=== PATIENT | male | born 1955 | race Caucasian/White ===

== ENCOUNTER 2018-06-10 07:58 | Inpatient (IN) ==
--- NOTE | 2018-06-05 18:48 | MH ---
cc: Edil Churchill MD, Anunporn MD DATE OF ADMISSION: 06/10/2018 He is scheduled to be admitted to the hospital on 06/10/2018. ADMITTING DIAGNOSIS: Osteoarthritis of the right knee. HISTORY OF PRESENT ILLNESS: The patient is a 63-year-old white male who has experienced approximately a 5-year history of pain involving his right knee. He had originally noted the gradual onset of soreness generalized about the knee, unrelated to injury or unusual activity. He had initially conformed to conservative management during which time there was a waxing and waning of soreness about the knee that had become somewhat more pronounced with the passage of time. He had been taking Motrin for pain relief, being unaware of any significant swelling. He was initially evaluated in the office in 03/2015 for his complaints involving right knee pain. At that time, he suggested that he might have undergone arthroscopic surgery of his right knee approximately 20 years previous, but was unable to be more specific in this regard. His current x-ray studies at that time did reveal intra-articular calcification more pronounced about the medial compartment with remaining bony alignment and configuration appearing within normal limits. The patient was diagnosed as having chondrocalcinosis of his right knee with possible internal derangement, at which time, he declined offer for prescribed medication or an intraarticular steroid injection, electing to continue with conservative management thereafter. He subsequently returned to the office in the more recent past, indicating ongoing pain about his right knee. He subsequently underwent an MRI scan and evaluation, the results of which identified moderate to severe medial compartment osteoarthritis with femoral condyle marrow edema and what appeared to be a recurrent oblique and horizontal tear of the posterior horn and body of the medial meniscus as well as a short segment oblique tear of the body of the lateral meniscus. There was moderate lateral and patellofemoral compartment chondromalacia associated with a large joint effusion and severe synovitis. The findings of the scan were reviewed and treatment options discussed. The patient had undergone recent aspiration of his right knee with an intraarticular steroid injection that unfortunately had not provided him with any significant relief of his pain. Based upon the findings of his scan, treatment options were reviewed with indication being noted that it was unlikely that the patient would be able to experience any long-term benefit from arthroscopic surgery, and that his more favorable long-term benefit would more likely be associated with total knee arthroplasty. It was emphasized that the decision to proceed with surgery would be left entirely to the patient's discretion. The patient readily admitted that his symptoms had progressed to a point in time where he was ready to proceed accordingly and in compliance with his wishes, he has currently been scheduled for admission in order that the above be accomplished. PAST MEDICAL HISTORY: In addition to the arthroscopic surgery of his right knee, includes excision of a benign cyst from his back area and colonoscopy. The patient denies active medical illnesses. He takes no prescribed medications. There are NO INDICATED DRUG ALLERGIES. REVIEW OF SYSTEMS: He does wear glasses. There is a history of headaches. No seizure or syncope. No sinus congestion or epistaxis. Auditory acuity intact. No tinnitus. No bleeding gums or dysphagia. Denies cough, shortness of breath, upper respiratory infection. There is a positive history of pneumonia. No angina or heart disease. His appetite is good. Bowel movements are regular. No hepatitis, gallbladder disease or hemorrhoids. There is a history of ulcers. No urinary tract infection, no kidney stones, history of inflamed prostate. No fractures. No psychiatric illness. His remaining review of systems is unremarkable and noncontributory. FAMILY HISTORY: The patient has been for 17 years. One daughter described as being in good health. FAMILY HISTORY: Positive for hypertension, diabetes and heart disease. 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 He completed a high school education. He denies active use of tobacco and ethanol. VITAL SIGNS: VITAL SIGNS: Height 6 feet 2 inches, weight 217 pounds. GENERAL: An alert, oriented, and responsive 63-year-old white male who sits quietly upon the examination table with no obvious distress. HEAD, EARS, EYES, NOSE, AND THROAT: Pupils are equally round and reactive to light. Extraocular movements full. Sclerae are clear. External nares clear. External auditory canals clear. Dental intact. Mucous membranes pink and moist. Pharynx clear. NECK: Supple. Active range of motion without appreciable pain. Carotid pulse is palpable bilaterally. Trachea midline. Thyroid without thyroid enlargement. LUNGS: Clear to auscultation and percussion. No CVA tenderness. No discomfort throughout the dorsolumbar spine. HEART: Regular rate and rhythm. No murmur or gallop. ABDOMEN: Soft, nontender, bowel sounds present. RECTAL: Per primary care physician. EXTREMITIES: Right knee, there is a generalized fullness about the knee consistent with thickened synovium and intraarticular effusion. Slight medial joint line tenderness. Apprehension and compression sign negative. Limited mobility in the 90-100 degree range of flexion with pain at the extreme of motion. No appreciable ligamentous instability. Sandy test and drawer sign negative. Pivot shift and Kervin sign positive for medial compartment pain. Straight leg raising unremarkable at 80 degrees. Antalgic gait. NEUROLOGIC: Cranial nerves 2-12 grossly intact. IMPRESSION: Osteoarthritis, right knee. PLAN: Right total knee arthroplasty. The nature of the planned surgical procedure, the potential complications and risks associated, the expectations of surgery and the consent form were thoroughly reviewed with the patient prior to his admission to the hospital. Jonathan has indicated his full understanding regarding all of the above and given consent to proceed with treatment as outlined. Evaluation and clearance for surgery completed by his primary care physician, Dr. Toyin Barksdale (Tui)azhelen. MD JOLYNN Fermin/tom/ward , 04:59 PM , 05:11 PM
[2018-06-10] MEDS ORDERED: Chlorhexidine Gluconate 2% 1 Pack (2 Cloths) TOPICAL ONE (08:34)
[2018-06-10] MEDS ORDERED: Metoprolol Tartrate 25 MG Tablet PO ONE (08:34)
[2018-06-10] MEDS ORDERED: Sodium Chlor 0.9% Inj 73.07 ML, Ropivacaine 0.5% PF Inj 24.63 ML, Ketorolac Inj 30 MG, ... P-ARTICULR SCH ×5 (08:45)
[2018-06-10] MEDS ORDERED: Tranexamic Acid Inj 1,000 MG in Sodium Chlor 0.9% Inj 100 ML IV.SIG SCH ×2 (09:00→11:41)
[2018-06-10] MEDS ORDERED: ROPIVACAINE 0.5% P-ARTICULR SCH ×5 (09:00)
[2018-06-10] MEDS ORDERED: KETOROLAC P-ARTICULR SCH ×5 (09:00)
[2018-06-10] MEDS ORDERED: Sodium Chlor 0.9% Inj 500 ML IV.SIG SCH (09:00)
[2018-06-10] MEDS ORDERED: SODIUM CHLOR 0.9% P-ARTICULR SCH ×5 (09:00)
[2018-06-10] MEDS ORDERED: ceFAZolin 2 GM Premix Inj 2 GM/50 ML PIGGYBACK IV.SIG SCH (09:00)
[2018-06-10] MEDS ORDERED: [UNRECOGNIZED DRUG - OTHER] P-ARTICULR SCH ×5 (09:00)
[2018-06-10] MEDS ORDERED: ceFAZolin Inj 2,000 MG in Sodium Chlor 0.9% Inj 100 ML IV.SIG SCH (09:00)
[2018-06-10] MEDS ORDERED: Bupivacaine/Dextrose 0.75% Inj 2 ML Ampul ONE (09:22)
[2018-06-10] MEDS ORDERED: Propofol Inj 500 MG/50 ML Vial ONE (09:29)
[2018-06-10] MEDS ORDERED: Lidocaine PF 1% Inj 5 ML Syringe OTHER ONE (11:15)
[2018-06-10] MEDS ORDERED: Neostigmine Inj 5 MG/5 ML Syringe IV.PUSH ONE (11:15)
[2018-06-10] MEDS ORDERED: Glycopyrrolate Inj 1 MG/5 ML Syringe IV.PUSH ONE (11:15)
[2018-06-10] MEDS ORDERED: *morphine SULFATE 4 MG/ML PERIprocedure ONLY ONE ×3 (14:01→14:20)
[2018-06-10] MEDS ORDERED: Naloxone Inj 0.4 MG/ML Vial IV.PUSH PRN (14:04)
[2018-06-10] MEDS ORDERED: Aluminum/Magnesium/Simethacone Susp 30 ML UDC PO PRN (14:04)
[2018-06-10] MEDS ORDERED: Morphine Inj 30 MG/30 ML PCA.VIAL PCA PRN (14:04)
[2018-06-10] MEDS ORDERED: Zolpidem Tartrate 5 MG Tablet PO PRN (14:04)
[2018-06-10] MEDS ORDERED: Acetaminophen 325 MG Tablet PO PRN (14:04)
[2018-06-10] MEDS ORDERED: Morphine Sulfate Inj 2 MG/ML Vial IV.PUSH PRN (14:04)
[2018-06-10] MEDS ORDERED: fentaNYL Citrate Inj 100 MCG/2 ML Ampul ONE (14:04)
[2018-06-10] MEDS ORDERED: Bisacodyl 10 MG Supp RECTAL PRN (14:04)
[2018-06-10] MEDS ORDERED: Post-op Orders (for Pharmacy) OTHER STA (14:04)
[2018-06-10] MEDS ORDERED: Tranexamic Acid Inj 1,000 MG in Sodium Chlor 0.9% Inj 100 ML IV.SIG ONE (14:20)
--- NOTE | 2018-06-10 14:56 | MP ---
cc: Edil Churchill MD DATE OF OPERATION: 06/10/2018 PREOPERATIVE DIAGNOSIS: Osteoarthritis of the right knee. POSTOPERATIVE DIAGNOSIS: Osteoarthritis of the right knee. PROCEDURE PERFORMED: Right total knee arthroplasty. SURGEON: Edil Churchill MD. ANESTHESIA: General endotracheal. INDICATIONS: This is a 63-year-old white male with a 5-year history of right knee pain of gradual onset, unrelated to injury or unusual activity. He had conformed to conservative management in the early phases of his treatment, during which time he described a waxing and waning of soreness about the knee that had become more pronounced with the passage of time. He had been taking Motrin for pain management, being unaware of any significant swelling about his knee. He had undergone office evaluation in 03/2015 and, at that time, he suggested that he might have undergone arthroscopic surgery of his right knee within the previous 20 years, but was unable to be more specific in this regard. His x-ray studies had revealed intra-articular calcification more pronounced about the medial compartment, with remaining bony alignment and configuration appearing within normal limits. The patient was diagnosed as having chondrocalcinosis, with possible internal derangement and, at that time, he declined offer for prescribed medication for an intraarticular steroid injection, continuing with conservative management. He will return to the office in the more recent past, describing ongoing pain about his right knee. He later underwent an MRI scan, the results of which identified moderate to severe medial compartment osteoarthritis with femoral condyle marrow edema, and what appeared to be a recurrent oblique and horizontal tear involving the posterior horn and body of the medial meniscus. A short segment oblique tear of the body of the lateral meniscus was also noted. There was moderate lateral and patellofemoral compartment chondromalacia associated with a large joint effusion and severe synovitis. These findings were reviewed with the patient and treatment options discussed. The patient later underwent an aspiration of his right knee with an intraarticular steroid injection that unfortunately did not prove to be of any long-term benefit. Based upon the findings of the scan and the treatment options being reviewed, it was suggested to the patient that it would be unlikely that long-term benefit would occur from arthroscopic surgery and this more favorable course of treatment would be associated with total knee arthroplasty. The patient considered his options in this regard and, thereafter, he expressed a desire to proceed with the arthroplasty as discussed, and in compliance with his wishes, he was scheduled for admission at this time in order that the above be accomplished. FORMAT: Following induction of satisfactory general anesthesia by endotracheal intubation as completed per the department of anesthesia, a tourniquet was established around the proximal portion of the right lower extremity. The extremity proper was isolated with a U-drape, thereafter being prepped with Betadine solution and draped into a sterile field in the routine manner. Prior to initiation of the actual procedure, the standard timeout protocol was completed. All parameters were appropriately addressed and confirmed by operating room personnel. The extremity was elevated for approximately 1 minute and the tourniquet thus inflated to 250 mmHg pressure. A sharp skin incision was initiated midline over the anterior aspect of the knee and developed through underlying subcutaneous tissue, with hemostasis maintained by electrocautery. By deepening dissection, the anterior capsule was exposed, the medial capsulotomy completed, and the patella subluxed in a lateral orientation. Examination of the joint space revealed severe degenerative changes throughout the medial compartment, extending into the lateral compartment, and lesser involvement about the patellofemoral articulation. The articular surface of the patella was resected with a power saw. The 3-holed guide was utilized for establishing post-holes. The anterior cruciate ligament as well as medial and lateral meniscus structures were sharply excised. A centering hole was placed in the distal aspect of the femur, allowing positioning of the intramedullary guide. The distal femoral cutting jig was attached and the distal femur resected. AP measurement noted 75 mm sizing to be appropriate. The matching cutting block was positioned. Anterior, posterior, and chamfer cuts were completed. The tibial plateau was subluxed in an anterior orientation, allowing positioning of the extramedullary guide. The tibial plateau was resected and measured with 83-mm sizing determined to be satisfactory. Trial reduction followed utilizing a 75-mm anatomic femoral component, an 83-mm tibial base with 10-mm bearing insert. The knee was readily reduced and was carried through a passive range of motion, and stability was noted at 0 and 90 degrees of flexion with no appreciable laxity to varus and valgus stress. Reduction, thereafter, completed with a 34-mm standard 3 post-patellar button. Once again good tracking was demonstrated with no tendency towards subluxation. All trial components being removed, the remaining portion of the proximal tibia was prepared for insertion of the permanent component. The joint space was thoroughly lavaged with pulsating antibiotic solution, hemostasis being maintained by electrocautery. An autogenous bone plug was inserted into the distal femoral guide hole and, thereafter, a preparation of Biomet bone cement was utilized in inserting knee components in a sequential fashion, which included an 83-mm fixed cruciate tibial plate, to which a 10-mm Vanguard tibial bearing insert was secured with locking napoles. The 75-mm Vanguard femoral component was firmly seated onto the distal femur, excess cement being removed. The knee was brought to full extension and, thereafter, the 34-mm standard 3 post-patellar button was attached and maintained in place with patellar clamp while cement hardening was completed. Final range of motion assessment noted good tracking and stability throughout the knee. Irrigation was repeated with hemostasis maintained. AutoVac drain tubes were inserted through superior stab wounds. The capsule was repaired with 0 Vicryl suture. The remaining portion of the wound was closed in layers in the routine manner, skin margins being reapproximated with a running subcuticular 3-0 Vicryl suture, over which Steri-Strips were applied. Xeroform gauze and a bulky dry sterile dressing were placed. Tourniquet deflated after 48 minutes of tourniquet time. Anesthesia discontinued. The patient was transferred to a hospital bed and returned to the recovery room in satisfactory condition, having tolerated his operative procedure well. Estimated blood loss was approximately 100 mL as determined per anesthesia. 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 MD JOLYNN Fermin/renetta , 01:56 PM , 02:11 PM
[2018-06-10] MEDS ORDERED: Famotidine PF Inj 20 MG/2 ML Vial ONE (14:58)
--- NOTE | 2018-06-10 15:50 | XR ---
EXAM DATE: 06/10/2018 3:28 PM EDT AGE/SEX: 63 years / Male INDICATIONS: Post op total knee replacement. CLINICAL DATA: This is the patient's initial encounter. Patient reports that signs and symptoms have been present for 1 day and indicates a pain score of 7/10. MEDICAL/SURGICAL HISTORY: None. None. COMPARISON: No prior exams available for comparison. FINDINGS: Two views of the knee reveal a total knee prosthesis in good position. No fracture or dislocation is observed. Soft tissues are unremarkable. No joint effusion is seen. Surgical drain noted. CONCLUSION: Total knee prosthesis in good position. Electronically signed by: Sam Prince MD 06/10/2018 3:48 PM EDT
[2018-06-10] MEDS ORDERED: Famotidine PF Inj 20 MG/2 ML Vial IV.PUSH ONE (16:00)
--- NOTE | 2018-06-10 16:10 | P.CONIM ---
History of Present Illness Service: [facility] Consult date: 06/10/18 Requesting Physician: Edil Churchill Reason for Consult: MEDICAL MANAGEMENT Primary Care Provider: Toyin Dominguez MD Family Provider: Toyin Dominguez MD Chief Complaint: Status post right knee total arthroplasty History of Present Illness: Patient is a 63-year-old male with history of arthroscopic surgery of his right knee and excision of a benign cyst from his back and a colonoscopy denies any other medical issues. Does not take any active medications. Was found to have right knee severe osteoarthritis underwent a right total knee arthroplasty today. We have been asked to help regarding medical management. Patient has history of GERD and enlarged prostate. Patient denies any real medical problems other than osteoarthritis. Past family history is significant for hypertension and diabetes and heart disease Review of Systems All other systems reviewed negative except as stated in HPI [facility] - History History Provided By: Patient - Medical History Medical History: Medical History (Last Reviewed 06/10/18 @ 11:04 by Huong Wilson PT) Acid reflux Arthritis Enlarged prostate History of anesthesia reaction Joint pain Wears glasses - Surgical History Surgical History: Surgical History (Last Reviewed 06/10/18 @ 11:04 by Huong Wilson PT) History of arthroscopy of right knee - Family History Family History: Family History (Last Updated 06/10/18 @ 16:03 by Zachary Ballesteros DO) Other Family history of diabetes mellitus Family history of hypertension - Social History I have reviewed the patient's Social History: Yes - Tobacco History Second Hand Smoke Exposure: No Smoking Status: Never smoker - Alcohol History How Often Do You Have a Drink Containing Alcohol: Never - Substance Use History Substance History: No History of Abuse - Travel History History of Recent Travel: No Recent Travel in the [place] Within the Last 8 Weeks: No Recent Travel Out of the Country Within the Last 8 Weeks: No Medications and Allergies Active Medications: Active Medications Acetaminophen (Tylenol) 650 mg PO Q6H PRN PRN Reason: FEVER > 102 F Hydrocodone Bitart/Acetaminophen ([place] 5/325) 1 tab PO Q4H PRN PRN Reason: PAIN LESS THAN 5 ON SCALE Hydrocodone Bitart/Acetaminophen ([place] 5/325) 2 tab PO Q6H PRN PRN Reason: PAIN SCALE 5 TO 10 Al Hydrox/Mg Hydrox/Simethicone (Mag-Al Plus Susp Liq) 30 ml PO Q6H PRN PRN Reason: INDIGESTION Al Hydroxide/Mg Hydroxide (Milk Of Magnesia Liq) 30 ml PO BID PRN PRN Reason: Mild Constipation Aspirin (Aspirin) 325 mg PO BID MARY LOU Bisacodyl (Dulcolax Supp) 10 mg RECTAL DAILY PRN PRN Reason: SEVERE CONSITIPATION Lactated Ringer's (Lr 1000 Ml Inj) 1,000 mls @ 30 mls/hr IV.SIG .Q24H [facility]ARY LOU Stop: 06/11/18 08:44 Last Infusion: 06/10/18 13:04 Dose: Infused Sodium Chloride (Ns Inj) 500 mls @ 30 mls/hr IV.SIG .Q10H MARY LOU Last Admin: 06/10/18 10:14 Dose: Not Given Tranexamic Acid 1,000 mg/ (Sodium Chloride) 110 mls @ 200 mls/hr IV.SIG ONCE MARY LOU Stop: 06/11/18 08:59 Last Infusion: 06/10/18 12:11 Dose: Infused Tranexamic Acid 1,000 mg/ (Sodium Chloride) 110 mls @ 200 mls/hr IV.SIG ONCE MARY LOU Stop: 06/11/18 11:40 Cefazolin Sodium 1,000 mg/ (Sodium Chloride) 100 mls @ 200 mls/hr IV.SIG Q6H [facility] Stop: 06/11/18 06:29 Lactated Ringer's (Lr 1000 Ml Inj) 1,000 mls @ 80 mls/hr IV.CONT .[id number] [facility] Morphine Sulfate (Morphine Inj) 30 mg in 30 mls @ 0 mls/hr EDUCATION LIAISON UNSCH PRN PRN Reason: per EDUCATION LIAISON parameters Lactulose (Lactulose Liq) 30 ml PO DAILY PRN PRN Reason: SEVERE CONSITIPATION Miscellaneous Information (Misc Nursing Information) 0 each OTHER UNSCH PRN PRN Reason: SEE DOSE INSTRUCTIONS Morphine Sulfate (Morphine Inj) 2 mg IV.PUSH Q3H PRN PRN Reason: BREAKTHROUGH PAIN Multivitamins (Theragran) 1 tab PO DAILY MARY LOU Naloxone HCl (Narcan Inj) 0.4 mg IV.PUSH PRN PRN PRN Reason: Resp rate < 10 Ondansetron HCl (Zofran Inj) 4 mg IV.PUSH Q6H PRN PRN Reason: NAUSEA OR VOMITING Povidone Iodine (Betadine 7.5% Scrub) 1 applicatio TOPICAL ONCE [facility] Stop: 06/14/18 08:59 Senna/Docusate Sodium (Nikki-Colace) 1 tab PO BID [facility] Sennosides (Senokot) 17.2 mg PO BID PRN PRN Reason: Moderate Constipation Sodium Chloride (Ns Flush) 2 ml IV.FLUSH PRN PRN PRN Reason: FLUSH AFTER USING IV ACCESS Sodium Chloride (Ns Flush) 2 ml IV.FLUSH BID [facility] Zolpidem Tartrate (Ambien) 5 mg PO HS PRN PRN Reason: INSOMNIA Allergies Allergy/AdvReac Type Severity Reaction Status Date / Time No Known Allergies Allergy Verified 06/10/18 08:49 Home Medications Medication Instructions Recorded Confirmed Type mv,Ca,Fe,[id number] [One 1 tab PO DAILY 05/29/18 06/10/18 History Daily] naproxen sodium [Aleve] 220 mg PO TID PRN 05/29/18 06/10/18 History omega 9-[id number]-fish oil [Fish Oil] 1 cap PO DAILY 05/29/18 06/10/18 History Exam Vital signs: Vital Signs 06/10/18 08:56 06/10/18 09:09 Temperature 97.9 F Pulse Rate 80 80 Respiratory Rate 18 Blood Pressure 150/87 H Pulse Oximetry 96 97 Intake & Output 06/09/18 06/10/18 06/10/18 18:59 06:59 18:59 Intake Total 1330 / 1330 Output Total 100 / 100 Balance 1230 / 1230 Weight 97.3 kg Intake: IV 1230 / 1230 LR 1000 mL Inj 1,000 ML @ 30 1000 / 1000 mls/hr IV.SIG .Q24H MARY LOU Rx#: [id number] Cyklokapron Inj 1,000 MG In NS 110 / 110 Inj 100 ML @ 200 mls/hr IV.SIG ONCE [facility]ARY LOU Rx#:[id number] Ancef Inj 2,000 MG In NS Inj 120 / 120 100 ML @ 200 mls/hr IV.SIG PERIANESTHESIA RN MARY LOU Rx#:[id number] Anesthesia Amount 100 / 100 Output: Estimated Blood Loss 100 / 100 Other: Weight On Admission 97.3 kg Narrative: GENERAL: Awake alert and oriented 3 talkative and cooperative SKIN: Warm and dry. HEAD: Atraumatic. Normocephalic. EYES: Pupils equal and round. No scleral icterus. No injection or drainage. EOMI ENT: No nasal bleeding or discharge. Mucous membranes pink and moist. Oral mucosa is moist NECK: Trachea midline. No JVD. Neck is supple CARDIOVASCULAR: Regular rate and rhythm. S1-S2 no S3-S4 RESPIRATORY: No accessory muscle use. Clear to auscultation. Breath sounds equal bilaterally. GASTROINTESTINAL: Abdomen soft, non-tender, nondistended. Hepatic and splenic margins not palpable. MUSCULOSKELETAL: Extremities without clubbing, cyanosis, or edema. No obvious deformities. Right knee is dressed and in CPM machine NEUROLOGICAL: Awake and alert. No obvious cranial nerve deficits. Motor grossly within normal limits. Five out of 5 muscle strength in the arms and legs. Normal speech. PSYCHIATRIC: Appropriate mood and affect; insight and judgment normal. Results - Labs Labs: Laboratory Results - last 24 hr 06/10/18 08:44 Blood Type A Negative Blood Type Recheck Required Antibody Screen Negative - Imaging Impressions Knee X-Ray 06/10/18 14:03 CONCLUSION: Total knee prosthesis in good position. Assessment and Plan - Plan Status post right total knee arthroplasty due to severe osteoarthritis. Will defer to Dr. Churchill History of GERD will make Pepcid/ available Continue on medications for constipation History of BPH monitor with home meds A.m. labs DVT prophylaxis per orthopedics GI prophylaxis Code Status: Full code Discussed Condition With: RN and patient Discharge Planning: Pending clearance by orthopedic surgery
[2018-06-10] MEDS: Famotidine 20 MG Tablet PO SCH (21:24)
[2018-06-10] MEDS: Aspirin 325 MG Tablet PO SCH (21:24)
[2018-06-10] MEDS: Senna/Docusate Sodium 8.6/50 MG Tablet PO SCH (21:24)
[2018-06-11 05:29] LABS: Baso % (Auto) 0.4 % (0.0-2.0); Eos % (Auto) 0.1 % (0.0-4.0); Hematocrit 41.2 % (39.0-51.0); Hemoglobin 13.9 gm/dL (13.0-17.0); Lymph # (Auto) 1.2 th/mm3 (1.0-4.8); Lymph % (Auto) 10.9 % (9.0-44.0); Mean Corpuscular HGB Conc 33.6 % (32.0-36.0); Mean Corpuscular Hemoglobin 30.2 pg (27.0-34.0); Mean Corpuscular Volume 89.7 fL (80.0-100.0); Mean Platelet Volume 7.5 fL (7.0-11.0); Mono # (Auto) 1.6 th/mm3 (0.0-0.9); Neut # (Auto) 8.3 th/mm3 (1.8-7.7); Neut % (Auto) 74.6 % (16.0-70.0); Platelet Count 246 th/mm3 (150-450); Red Blood Count 4.59 mil/mm3 (4.50-5.90); Red Cell Distribution Width 14.1 % (11.6-17.2); White Blood Count 11.2 th/mm3 (4.0-11.0)
[2018-06-11 06:00] LABS: Albumin 3.1 g/dL (3.4-5.0); Anion Gap 8 meq/L (5-15); Aspartate Aminotransferase 17 U/L (15-37); Blood Urea Nitrogen 11 mg/dL (7-18); Calcium 8.2 mg/dL (8.5-10.1); Carbon Dioxide 29.3 meq/L (21.0-32.0); Chloride 102 meq/L (98-107); Glomerular Filtration Rate 84 mL/min (>89); Glucose,Random 110 mg/dL (74-106); Magnesium 1.7 mg/dL (1.5-2.5); Potassium 3.9 meq/L (3.5-5.1); Sodium 139 meq/L (136-145)
[2018-06-11 06:01] LABS: Alanine Aminotransferase 18 U/L (12-78); Phosphorus 2.2 mg/dL (2.5-4.9)
[2018-06-11 06:09] LABS: Alkaline Phosphatase 82 U/L (45-117); Free T4 (Free Thyroxine) 1.26 ng/dL (0.76-1.46); Thyroid Stimulating Hormone 0.417 uIU/mL (0.358-3.740); Total Protein 6.6 g/dL (6.4-8.2)
[2018-06-11] MEDS ORDERED: Non-Formulary Drug (Omega 3-Dha-Epa-Fish Oil [Fish Oil] 1 CAP) PO SCH (09:00)
[2018-06-11] MEDS: Famotidine 20 MG Tablet PO SCH ×2 (09:34→22:05)
[2018-06-11] MEDS: Aspirin 325 MG Tablet PO SCH ×2 (09:34→22:05)
[2018-06-11] MEDS: Senna/Docusate Sodium 8.6/50 MG Tablet PO SCH ×2 (09:34→22:05)
--- NOTE | 2018-06-11 10:13 | P.PN ---
Subjective Interval history: Patient was seen later today. He is in bed he feels a little bit tired. Patient says he was walking with physical therapy today and did well. No fever or chills. No cough. Encourage changes incentive spirometry spirometry Did not have a bowel movement yet. Eating well, no nausea vomiting no diarrhea constipation. Hemoglobin stable. Physical Exam Vital signs: Vital Signs 06/10/18 13:50 06/10/18 14:00 06/10/18 14:15 Temperature 97.2 F L Pulse Rate 74 79 74 Respiratory Rate 14 15 16 Blood Pressure 135/76 125/76 123/76 Pulse Oximetry 100 97 97 06/10/18 14:30 06/10/18 14:45 06/10/18 15:15 Temperature Pulse Rate 74 73 75 Respiratory Rate 15 15 15 Blood Pressure 132/79 138/78 139/71 Pulse Oximetry 97 100 100 06/10/18 15:45 06/10/18 15:55 06/10/18 16:00 Temperature 97.5 F L 97.4 F L Pulse Rate 73 83 88 Respiratory Rate 15 14 20 Blood Pressure 139/79 147/85 H 149/84 H Pulse Oximetry 97 100 97 06/10/18 20:00 06/11/18 00:00 06/11/18 02:47 Temperature 98.6 F 99.4 F Pulse Rate 86 108 H Respiratory Rate 16 17 14 Blood Pressure 167/78 H 148/86 H Pulse Oximetry 96 94 L 06/11/18 03:39 06/11/18 08:00 Temperature 100.0 F H 98.2 F Pulse Rate 101 H 91 H Respiratory Rate 17 18 Blood Pressure 138/74 136/82 Pulse Oximetry 94 L 95 Intake & Output 06/10/18 06/11/18 06/11/18 18:59 06:59 18:59 Intake Total 1690 / 1690 350 / 350 100 / 100 Output Total 210 / 210 1330 / 1330 250 / 250 Balance 1480 / 1480 -980 / -980 -150 / -150 Weight 97.3 kg 100.3 kg Intake: IV 1230 / 1230 200 / 200 100 / 100 LR 1000 mL Inj 1,000 ML @ 30 1000 / 1000 mls/hr IV.SIG .Q24H [facility] Rx#: [id number] Cyklokapron Inj 1,000 MG In NS 110 / 110 Inj 100 ML @ 200 mls/hr IV.SIG ONCE [facility] Rx#:[id number] Ancef Inj 1,000 MG In NS Inj 200 / 200 100 / 100 100 ML @ 200 mls/hr IV.SIG Q6H [facility] Rx#:[id number] Ancef Inj 2,000 MG In NS Inj 120 / 120 100 ML @ 200 mls/hr IV.SIG [employer] ASSIST[employer] [facility] Rx#:[id number] Oral 360 / 360 150 / 150 Anesthesia Amount 100 / 100 Output: Urine 500 / 500 250 / 250 Estimated Blood Loss 100 / 100 Urine Amount (Catheter) 800 / 800 Straight 800 / 800 Wound Drainage 110 / 110 30 / 30 # 1 Right Knee Hemovac 110 / 110 30 / 30 Other: # Voids 0 Date of Last Bowel Movement 06/09/18 06/09/18 # Bowel Movements 0 Weight On Admission 97.3 kg Narrative: GENERAL: Awake alert and oriented 3, in bed appears in not acute distress CARDIOVASCULAR: Regular rate and rhythm. S1-S2 no S3-S4 RESPIRATORY: No accessory muscle use. Clear to auscultation. Breath sounds equal bilaterally. GASTROINTESTINAL: Abdomen soft, non-tender, nondistended. Hepatic and splenic margins not palpable. MUSCULOSKELETAL: Extremities without clubbing, cyanosis, or edema. No obvious deformities. Right knee is dressed and in CPM machine NEUROLOGICAL: Awake and alert. No obvious cranial nerve deficits. Motor grossly within normal limits. Five out of 5 muscle strength in the arms and legs. Normal speech. PSYCHIATRIC: Appropriate mood and affect; insight and judgment normal. - Urinary Catheter Management Straight Cath placed during this visit: yes, but has since been removed by the nurse Reason for continuing: Not indwelling catheter Insertion date: 06/10/18 Insertion time: 21:55 Removal time: 22:14 Results - Labs CBC & Chem 7: 06/11/18 04:33 06/11/18 04:33 Laboratory Results - last 24 hr 06/10/18 06/11/18 06/11/18 08:44 04:33 04:33 WBC 11.2 H RBC 4.59 Hgb 13.9 Hct 41.2 MCV 89.7 MCH 30.2 MCHC 33.6 RDW 14.1 Plt Count 246 MPV 7.5 Neut % (Auto) 74.6 H Lymph % (Auto) 10.9 Osborne % (Auto) 14.0 H Eos % (Auto) 0.1 Baso % (Auto) 0.4 Neut # (Auto) 8.3 H Lymph # (Auto) 1.2 Osborne # (Auto) 1.6 H Eos # (Auto) 0.0 Baso # (Auto) 0.0 WBC Differential . Differential Comment Auto diff final Sodium 139 Potassium 3.9 Chloride 102 Carbon Dioxide 29.3 Anion Gap 8 BUN 11 Creatinine 0.91 Estimated GFR 84 L Random Glucose 110 H Calcium 8.2 L Phosphorus 2.2 L Magnesium 1.7 Total Bilirubin 0.5 AST 17 ALT 18 Alkaline Phosphatase 82 Total Protein 6.6 Albumin 3.1 L TSH 0.417 Free T4 1.26 Blood Type Recheck Required Antibody Screen Negative - Imaging Impressions Knee X-Ray 06/10/18 14:03 CONCLUSION: Total knee prosthesis in good position. Assessment and Plan - Plan Status post right total knee arthroplasty due to severe osteoarthritis. Management per ortho Dr. Churchill History of GERD will make Pepcid/ available Continue on medications for constipation History of BPH monitor with home meds Monitor labs. H/H stable Monitor VS, stable. DVT prophylaxis per orthopedics GI prophylaxis Code Status: Full code Discussed Condition With: RN and patient Discharge Planning: Pending clearance by orthopedic surgery
--- NOTE | 2018-06-11 16:02 | P.DCO ---
- Physical Therapy Physical Therapy: Gait training Knee: Total knee, Protocol: Right, Full weight bearing Right Lower Extremity Weight Bearing: Weight bearing as tolerated Right Lower Extremity Range of Motion: Active ROM - Nursing Nursing: Dressing changes Dressing changes: Daily dressing change - Certification Need for Home Health services: I have seen patient Jonathan Josue on 06/11/18. My clinical findings support the need for the requested home health care services because: Need for Home Health Services: Limited ability to care for self, High risk of falls Homebound Certification: I certify that my clinical findings support that this patient is homebound because: Homebound Certification: Post-op weakness, Unsteady gait/balance, Unsafe to leave home unassisted
[2018-06-11 16:41] LABS: Hemoglobin A1c 5.4 % (4.3-6.0)
--- NOTE | 2018-06-12 08:47 | P.PN ---
Subjective Interval history: Doing well with PT No events overnight No n/v/d/c HGB stable after surgery Pain is controlled by meds No cp, sob Physical Exam Vital signs: Vital Signs 06/11/18 12:00 06/11/18 16:00 06/11/18 16:03 Temperature 97.8 F 97.9 F Pulse Rate 106 H 75 Respiratory Rate 18 18 14 Blood Pressure 130/82 138/77 Pulse Oximetry 96 96 06/11/18 19:51 06/11/18 20:45 06/11/18 23:31 Temperature 98.2 F 97.7 F Pulse Rate 89 91 H Respiratory Rate 18 18 18 Blood Pressure 145/76 H 152/81 H Pulse Oximetry 94 L 96 06/12/18 03:10 06/12/18 04:00 06/12/18 08:00 Temperature 97.8 F 98.4 F Pulse Rate 90 81 Respiratory Rate 18 18 18 Blood Pressure 141/77 H 139/77 Pulse Oximetry 96 96 Intake & Output 06/11/18 06/12/18 06/12/18 18:59 06:59 18:59 Intake Total 1300 / 1300 480 / 480 Output Total 450 / 450 370 / 370 Balance 850 / 850 110 / 110 Weight 96.615 kg Intake: IV 100 / 100 Ancef Inj 1,000 MG In NS Inj 100 / 100 100 ML @ 200 mls/hr IV.SIG Q6H [facility] Rx#:[id number] Oral 1200 / 1200 480 / 480 Output: Urine 250 / 250 200 / 200 Wound Drainage 200 / 200 170 / 170 # 1 Right Knee Hemovac 200 / 200 170 / 170 Other: # Voids 5 3 Date of Last Bowel Movement 06/09/18 06/12/18 # Bowel Movements 1 Narrative: GENERAL: Awake alert and oriented 3, in bed appears in not acute distress CARDIOVASCULAR: Regular rate and rhythm. S1-S2 no S3-S4 RESPIRATORY: No accessory muscle use. Clear to auscultation. Breath sounds equal bilaterally. GASTROINTESTINAL: Abdomen soft, non-tender, nondistended. Hepatic and splenic margins not palpable. with dressing c/d/i NEUROLOGICAL: Awake and alert. No obvious cranial nerve deficits. Motor grossly within normal limits. Five out of 5 muscle strength in the arms and legs. Normal speech. PSYCHIATRIC: Appropriate mood and affect; insight and judgment normal. - Urinary Catheter Management Straight Cath placed during this visit: yes, but has since been removed by the nurse Reason for continuing: Not indwelling catheter Insertion date: 06/10/18 Insertion time: 21:55 Removal time: 22:14 Results - Labs CBC & Chem 7: 06/11/18 04:33 06/11/18 04:33 Laboratory Results - last 24 hr 06/11/18 04:33 Hemoglobin A1c 5.4 Assessment and Plan - Plan Status post right total knee arthroplasty due to severe osteoarthritis. Management per ortho Dr. Churchill History of GERD will make Pepcid/ available Continue on medications for constipation History of BPH monitor with home meds Monitor labs. H/H stable Monitor VS, stable. DVT prophylaxis per orthopedics GI prophylaxis Code Status: Full code Discussed Condition With: RN and patient Discharge Planning: Sneha medically Cleared by surgeon for DC to follow up as OP with PCP and consultants
[2018-06-12] MEDS: Famotidine 20 MG Tablet PO SCH (08:56)
[2018-06-12] MEDS: Senna/Docusate Sodium 8.6/50 MG Tablet PO SCH (08:56)
[2018-06-12] MEDS: Aspirin 325 MG Tablet PO SCH (08:56)
--- NOTE | 2018-06-12 12:05 | MD ---
cc: Edil Churchill MD, Dr. DATE OF DISCHARGE: 06/12/2018 ADMITTING DIAGNOSIS: Osteoarthritis, right knee. DISCHARGE DIAGNOSIS: Osteoarthritis, right knee HISTORY: A 63-year-old white male with a 5-year history of right knee pain as related to osteoarthritis. Had conformed to conservative management in the past, but became progressively more symptomatic with pain, which began to influence all activities of daily living. He had been taking Motrin for pain management and he did suggest that he had undergone arthroscopic surgery of his right knee within the previous 20 years, but was unable to be more specific in this regard. His current x-ray studies had revealed obvious arthritic changes for which the patient indicated his desire to proceed with a more definitive course of treatment. He had undergone an MRI scan, the results of which identified moderate to severe medial compartment osteoarthritis with femoral condyle marrow edema and what appeared to be a recurrent oblique and horizontal tear of the posterior horn and body of the medial meniscus as well as a short segment oblique tear of the body of the lateral meniscus. 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 Findings and treatment options were reviewed. The pros and cons of continuing with conservative management versus arthroscopic surgery as opposed to total knee arthroplasty were outlined in detail with the pluses and minuses of each procedure being emphasized. Recommendation was made for a total knee replacement, anticipating it would offer the patient a more favorable long-term benefit. He was in full agreement to this recommendation and expressed a desire to proceed accordingly and was thus scheduled for admission at this time in order that the above be accomplished. For additional information with regard to his pertinent history, interested parties would be directed to his admitting documentation involving his history and physical record. PHYSICAL EXAMINATION: EXTREMITIES: His physical examination at the time of admission revealed a generalized fullness about the right knee consistent with a thickened synovium and intraarticular effusion. There was medial joint line tenderness. Apprehension and compression sign negative. Limited ability mobility in the 90-100 degree range of flexion with pain at the extreme of motion. No appreciable ligamentous instability. Sandy's test and drawer sign negative. Pivot shift and Kervin sign positive for medial compartment pain. Straight leg raising unremarkable at 80 degrees; antalgic gait. HOSPITAL COURSE: Prior to admission to the hospital, the patient had undergone medical evaluation and clearance for surgery as completed by his primary care physician, Dr. Torrez. He was taken to the operating room on 10 June 2018 and on that date underwent a right total knee arthroplasty completed in an uncomplicated manner. The patient was noted to have tolerated his operative procedure well. His postoperative course stable thereafter. Hemoglobin and hematocrit assessment on the first postoperative day was 13.9 and 41.2 respectively. The patient was progressively mobilized under the guidance of physical therapy being permitted weightbearing to tolerance about the right lower extremity. Followup examination of his surgical wound noted to be intact, healing favorably with no evidence of infection. Medical followup per the hospitalist service. DVT prophylaxis initiated. Wave Solder Offbearer consulted to assist with discharge planning. The patient had indicated his desire to be discharged home and continue his rehabilitation on an outpatient basis. Plans were finalized in this regard and pending medical clearance, he was scheduled for discharge on the second postoperative day, at which time he was noted to be making favorable progress with regard to his initial rehabilitation program. He was scheduled to be seen in office followup in approximately 4 weeks. HIS CONDITION AT THE TIME OF CONDITION ON DISCHARGE: Stable. PROGNOSIS: Favorable. DISCHARGE MEDICATIONS: Included: 1. Hydrocodone 5/325, #30. 2. Aspirin 325 mg 1 twice daily for 3 weeks, #40. MD JOLYNN Fermin/phuong , 06:57 AM , 07:06 AM
== END 2018-06-12 11:52 | disposition home health service (06) ==
LOC: HSDI 07:58 → N06 16:11
PROVIDERS: ADMIT Orthopaedic Surgery; ATTEND Orthopaedic Surgery